=== PATIENT | male | born 1960 | race Caucasian/White ===

== ENCOUNTER → 2018-01-14 | Outpatient (CLI) | payer OTHER ==
[~2018-01-14] VITALS: Ht 182.9 cm; Wt 59.0 kg
[~2018-01-14] MED LIST: ADVIL MIGRAINE200 MG PO; ADVIL200 MG PO; BUPRENORPHINE HC2 MG SL; CILOXAN 0.1 APPLICAT LEFT EYE; Levaquin PO; METHADOSE40 MG PO; MOTRIN800 MG PO; NICODERM CQ1 EACH TD; REGLAN10 MG PO; TESSALON200 MG PO
== END | disposition home or self-care (01) ==
LOC: AMB 10:05
PROC: 0DB68ZX Excision of Stomach, Via Natural or Artificial Opening Endoscopic, Diagnostic (ICD-10-PCS; principal; 2018-01-14)
DX: K26.9 Duodenal ulcer, unspecified as acute or chronic, without hemorrhage or perforation (principal); K29.80 Duodenitis without bleeding; K29.70 Gastritis, unspecified, without bleeding; I10 Essential (primary) hypertension; F41.9 Anxiety disorder, unspecified; B18.2 Chronic viral hepatitis C; F17.200 Nicotine dependence, unspecified, uncomplicated
CPT/HCPCS: 88305; 88342 TC; 93005; J2250